=== PATIENT | male | born 1985 | race Caucasian/White ===

== ENCOUNTER 2020-04-10 12:07 | Emergency (ER) | payer OTHER ==
[~2020-04-10] VITALS: Ht 195.6 cm; Wt 171.7 kg
[2020-04-10] MEDS ORDERED: OMEP40CA97 PO (12:16)
[2020-04-10 14:36] VITALS: BP 141/80
--- NOTE | 2020-04-10 14:51 | REP ---
SCROTAL ULTRASOUND: Real-time sonographic evaluation of the scrotum and contents performed. The testicles are normal in size and echotexture, right testicle measuring 4.7 x 1.8 x 3.2 cm and left testicle 4.3 x 2.0 x 3.1 cm. There is no testicular mass or torsion. Blood flow is seen in each testicle with duplex Doppler evaluation. Epididymis is unremarkable bilaterally. There are tiny hydroceles. IMPRESSION: Essentially negative scrotal ultrasound. No mass or torsion. Electronically Signed by Hussain Jimenes MD 04/10/2020 04:48 P
--- NOTE | 2020-04-10 14:53 | REP ---
LEFT INGUINAL ULTRASOUND: Real-time sonographic evaluation of the left inguinal region performed. No fluid collection or hematoma is seen. There are lymph nodes in the left inguinal region with fatty italo. These are at the upper limits of normal in size, the largest measured 1.8 x 1.0 x 1.5 cm and 2.1 x 0.9 x 1.7 cm. IMPRESSION: No fluid collection or hematoma. Lymph nodes seen in the left inguinal region at the upper limits of normal. Electronically Signed by Hussain Jimenes MD 04/10/2020 04:48 P
== END 2020-04-10 14:37 | disposition home or self-care (01) ==
LOC: M ED 12:07
DX: R10.32 Left lower quadrant pain (principal); N50.812 Left testicular pain; K21.9 Gastro-esophageal reflux disease without esophagitis; Z87.442 Personal history of urinary calculi; Z79.899 Other long term (current) drug therapy

== ENCOUNTER → 2020-04-24 | Outpatient (REF) | payer OTHER ==
[~2020-04-24] MED LIST: OMEP40CA97 PO
[2020-04-24 19:08] LABS: APPEARANCE, URINE CLEAR (CLEAR); BACTERIA, URINE AUTO NEGATIVE (NEGATIVE); BILIRUBIN, URINE AUTO NEGATIVE (NEGATIVE); BLOOD, URINE BLOOD NEGATIVE (NEGATIVE); COLOR, URINE YELLOW (YELLOW); GLUCOSE, URINE (UA) AUTO NEGATIVE (NEGATIVE); KETONE, URINE AUTO NEGATIVE (NEGATIVE); LEUKOCYTE ESTERASE, URINE AUTO NEGATIVE (NEGATIVE); NITRITE, URINE AUTO NEGATIVE (NEGATIVE); PROTEIN, URINE AUTO NEGATIVE (NEGATIVE); RBC, URINE AUTO 0 /HPF (0-3); SPECIFIC GRAVITY URINE AUTO 1.012 (1.002-1.035); SQUAMOUS EPITHELIAL CELL UR AU 0 /HPF (0-6); UROBILINOGEN, URINE AUTO 0.2 mg/dL (0.0-2.0); WBC, URINE AUTO 1 /HPF (0-3)
[2020-04-24 20:34] LABS: CHLAMYDIA DNA AMPLIFICATION NEGATIVE (NEGATIVE); GC DNA AMPLIFICATION NEGATIVE (NEGATIVE)
== END ==
LOC: M SMT 17:56
PROVIDERS: ATTEND Nurse Practitioner Family
DX: N50.82 Scrotal pain (principal)

== ENCOUNTER → 2020-05-16 | Outpatient (CLI) | payer OTHER ==
[~2020-05-16] MED LIST changes: +MULTCAP PO
--- NOTE | 2020-05-16 16:42 | REP ---
Inguinal ultrasound. Left side . History: Enlarged lymph node left inguinal region. Findings: Left inguinal soft tissue sonography demonstrates three identifiable lymph nodes measured as follows: 2.2 x 0.6 x 2.6, 2.2 x 1.0 x 1.6, and 2.0 x 0.9 x 1.7 cm respectively. The lymph nodes have echogenic central hilar fat surrounded by thin cortices consistent with normal lymph nodes. No evidence of hernia or abnormal fluid collection. Impression: Three identifiable left inguinal lymph nodes which have a benign appearance as described above. Clinical follow-up is recommended. Electronically Signed by Rui Mukherjee MD 05/16/2020 04:33 P
== END ==
LOC: M LRY 12:07
PROVIDERS: ATTEND Nurse Practitioner Family
DX: R59.1 Generalized enlarged lymph nodes (principal)

== ENCOUNTER 2020-06-12 06:11 | Day surgery (SDC) | payer OTHER ==
[~2020-06-12] VITALS: Ht 195.6 cm; Wt 118.8 kg
[2020-06-12] MEDS ORDERED: LIDOCAINE 2% 100MG/5ML SDV (FOR ANES.) As Ordered ONE (06:53)
[2020-06-12] MEDS ORDERED: SUGAMMADEX SODIUM 500 MG/5 ML VIAL (BRIDION) As Ordered ONE (06:53)
[2020-06-12] MEDS ORDERED: propofoL 200 MG/20 ML VIAL As Ordered ONE (06:53)
[2020-06-12] MEDS ORDERED: ONDANSETRON 4MG/2ML VIAL As Ordered ONE (06:53)
[2020-06-12] MEDS ORDERED: fentaNYL 100 MCG/2 ML INJECTION (J3010) As Ordered ONE (06:53)
[2020-06-12] MEDS ORDERED: MIDAZOLAM INJ 2MG/2ML VIAL (J2250 PER 1MG) As Ordered ONE (06:53)
[2020-06-12] MEDS ORDERED: KETOROLAC 60MG 2ML VIAL As Ordered ONE (06:53)
[2020-06-12] MEDS ORDERED: dexameTHASONE 4 MG/ML 1ML VIAL (J1100 PER 1MG) As Ordered ONE (06:53)
[2020-06-12] MEDS ORDERED: LR 1,000 ML IV ONE (07:00)
[2020-06-12] MEDS ORDERED: ceFAZolin SOD 2 GM in IV 1 EA IV ONE (07:00)
[2020-06-12] MEDS ORDERED: BACITRACIN OINTMENT 30GM TUBE As Ordered ONE (07:09)
[2020-06-12] MEDS ORDERED: PERCOCET 5MG/325MG TAB PO PRN (09:15)
[2020-06-12] MEDS ORDERED: oxyCODONE 5MG TAB PO PRN (09:15)
[2020-06-12] MEDS ORDERED: LR 1,000 ML IV SCH (09:15)
[2020-06-12] MEDS ORDERED: fentaNYL 100 MCG/2 ML INJECTION (J3010) IV PRN (09:15)
[2020-06-12] MEDS ORDERED: ONDANSETRON 4MG/2ML VIAL IV PRN (09:15)
--- NOTE | 2020-06-12 09:16 | ROOPDOC ---
[facility] Report Of Operation Report of Operation DATE OF PROCEDURE: 06/12/20 PREPROCEDURE DIAGNOSIS: Phimosis. POSTPROCEDURE DIAGNOSIS: Phimosis. OPERATIVE PROCEDURE: Circumcision. SURGEON: Ingris Verdin MD INFORMATION CONSULTANT: None. ANESTHESIA: General. OPERATIVE INDICATIONS: This is a 34-year-old male with phimosis presenting to the operating room today for the above listed procedure. DESCRIPTION OF PROCEDURE: The patient was brought to the operating room and general endotracheal anesthesia was induced. Prophylactic antibiotics were infused. He was then placed in the supine position, and prepped and draped in the usual sterile fashion. At this point, circumcising incisions were made at the level of coronal sulcus with the foreskin completely pulled over the glans, and then also with the foreskin retracted down off of the glans. All the foreskin between the circumcising incisions was then removed using electrocautery. Once that was done hemostasis was obtained using the Bovie. Once satisfied with hemostasis, the skin on the penile shaft was reapproximated to the glans using interrupted #3-0 chromic sutures. Once that was done dressings were applied, including a Nakul and a Coban dressing, and this marked the conclusion of the procedure. The patient was then awakened from anesthesia and transported to the recovery room in stable condition. ESTIMATED BLOOD LOSS: 15 mL. COMPLICATIONS: None. SPECIMENS: Foreskin. PLAN: The patient will followup in clinic in a approximately 2 weeks for a postoperative visit. INGRIS VERDIN MD Jun 12, 2020 09:16
[2020-06-12 11:11] VITALS: BP 134/82
== END 2020-06-12 11:15 | disposition home or self-care (01) ==
LOC: M SDC 06:11
PROVIDERS: ATTEND Urology
DX: N47.1 Phimosis (principal); K21.9 Gastro-esophageal reflux disease without esophagitis; G47.30 Sleep apnea, unspecified; Z79.899 Other long term (current) drug therapy
CPT/HCPCS: 54161; 88304; J0690; J1100; J1885; J2250; J2405; J3010

== ENCOUNTER → 2020-07-17 | Outpatient (CLI) | payer OTHER ==
--- NOTE | 2020-07-25 16:45 | REP ---
LIMITED PELVIC ULTRASOUND CLINICAL: Bilateral groin adenopathy. TECHNIQUE: Real-time ross scale and color evaluation using linear high frequency transducer. FINDINGS: Multiple left-sided inguinal lymph nodes are identified measuring roughly between 1.2 x 0.5 cm x 0.9 cm and 3.4 x 1.1 x 1.1 cm. Relatively similar to prior examination. Right-sided solitary groin lymph node measures 1.9 x 0.8 x 1.4 cm. IMPRESSION: Inguinal lymph nodes similar to prior examination without significant pathologic appearance. MTDD
== END ==
LOC: M RAD 14:25
PROVIDERS: ATTEND Nurse Practitioner Family
DX: R59.9 Enlarged lymph nodes, unspecified (principal)

== ENCOUNTER 2021-09-06 22:14 | Emergency (ER) | payer OTHER ==
[~2021-09-06] VITALS: Ht 195.6 cm; Wt 128.7 kg
[~2021-09-06 22:14] MED LIST changes: +OMEP40CA4 PO; -OMEP40CA97 PO
[2021-09-06 22:15] VITALS: BP 151/76
--- OUTSIDE RECORDS SUMMARY | 2021-09-06 22:24 | CCD | Continuity of Care Document ---
Author Author Jason AREVALO [employer] Organization Unknown Address [address] [place] [id number] Phone [phone] Care Team Providers Care Paramedic Name Role Phone David Tabares AUTM [phone] Problems Description No Information Available Social History Type Date Description Comments Sex Unknown ETOH Use Occasionally consumes alcohol Tobacco Use Start: Unknown Patient has never smoked Smoking Status Reviewed: 05/27/21 Patient has never smoked Allergies and adverse reactions Description No Known Drug Allergies Medications Active Medications SIG Qnty Indications Ordering Provide r Date Levothyroxine Sodium 125mcg Tablet s 1 tab by mouth every day 90tabs E03.9 Stefany Arevalo NP 2020 Acetaminophen 325mg Tablets 2 tabs every 4-6 hrs needed for pain Unknown 00 Ibuprofen 400mg Tablets 1 every 4-6 hours as needed Unknown Omeprazole 40mg Capsules DR 1 po qd Unknown Multi Vitamin Tablets 1 by mouth every day Unknown Trazodone HCL 50mg Tablets one tab by mouth every night at bedtime Unknown [place] 3 1000mg Capsules 1 tab bid Unknown History Medications Levothyroxine Sodium 137mcg Tablet s 1 tab by mouth every day 90tabs E03.9 Erlinda Decker MD - 04/24/2021 Immunizations Description No Information Available Vital Signs Date Vital Result Comment 09/02/2021 9:57am BP Systolic 146 mmHg BP Diastolic 80 mmHg Heart Rate 80 /min Height 77 inches 6'5" Weight 283.31 lb BMI (Body Mass Index) 33.6 kg/m2 O2 % BldC Oximetry 98 % 05/27/2021 8:43am BP Systolic 142 mmHg BP Diastolic 84 mmHg Heart Rate 84 /min Body Temperature 97.1 F Height 77 inches 6'5" Weight 272.00 lb BMI (Body Mass Index) 32.3 kg/m2 Results Test Acquired Date Facility Test Result H/L Range Note Laboratory test finding 05/27/2021 [facility] [address] [place] [address] [phone] - Free T4 By [facility] 1.5 ng/dL Normal . 1 Laboratory test finding 03/20/2021 [facility] [address] [place] [address] [phone] - Non [employer]Cytology Req For [employer] (SEE NOTE) 2 1 This test was developed and its performance characteristics determined by [facility]. It has not been cleared or approved by the Food and Drug Administration. Reference Range: Pubertal Children and Adults: 0.8 - 1.7 Performed at: [email or web address] [address] [place] [id number] [employer]: Yariel Armas MD, Phone: [phone] SPECIMEN: FNA of left thyroid nodule Specimen received in cytolyt SPECIMEN ADEQUACY: Satisfactory for evaluation CATEGORIZATION: Benign DESCRIPTIONS: Specimen consists of variable sized groups of follicular cells and scattered macrophages. COMMENTS: 03/21/2021 - 1103 Signed ABIDA BARTON (ASCP) 03/21/2021 1103 (Prelim) Signed RUBI GA MD 03/21/2021 1152 Procedures Date Code Description Status 09/02/2021 18197 Office/Outpatient Established Lo w MDM 20-29 Min Completed 05/27/2021 98342 Office/Outpatient Established Mo d MDM 30-39 Min Completed 04/24/2021 75901 Office/Outpatient Established Mo d MDM 30-39 Min Completed 03/20/2021 33556 Office/Outpatient Established Mo d MDM 30-39 Min Completed 03/20/2021 61548 Echography Soft Tissue Hand & Ne ck Completed 03/20/2021 00115 Fine Needle Aspiration Biopsy In lcd Ultrasound Guidance Completed Medical Devices Description No Information Available Encounters Type Date Location Provider Dx Diagnosis Office Visit 09/02/2021 9:45a DR. Erlinda Fish Stefany B. Jayden, N P E03.9 Hypothyroidism, unspecified E04.1 Nontoxic single thyroid nodu le Office Visit 05/27/2021 8:45a DR. Erlinda Arevalo, N P E03.9 Hypothyroidism, unspecified E04.1 Nontoxic single thyroid nodu le Office Visit 04/24/2021 9:45a DR. Erlinda Arevalo, N P E03.9 Hypothyroidism, unspecified E04.1 Nontoxic single thyroid nodu le Office Visit 03/20/2021 11:15a DR. Erlinda Decker MD E 03.9 Hypothyroidism, unspecified E04.1 Nontoxic single thyroid nodu le Assessments Date Code Description Provider 09/02/2021 E03.9 Hypothyroidism, unspecified Vargas Arevalo, [employer] 09/02/2021 E04.1 Nontoxic single thyroid nodule Isiah Arevalo, [employer] 05/27/2021 E03.9 Hypothyroidism, unspecified Vargas Arevalo, [employer] TE[employer]ER 05/27/2021 E04.1 Nontoxic single thyroid nodule Isiah Arevalo, [employer] 04/24/2021 E03.9 Hypothyroidism, unspecified Vargas Arevalo, [employer] TE[employer]ER 04/24/2021 E04.1 Nontoxic single thyroid nodule Isiah Arevalo, [employer] TE[employer] 03/20/2021 E03.9 Hypothyroidism, unspecified Viola Decker MD 03/20/2021 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 ( started Dec 2020)03/17/2021 TSH= 4.0, FT4= 1.0, TPO= >600TPO is positive.Dose increased to 137 mcgLabs done 04/22/21- TSH= 0.160, FT4= 1.36Dose decreased to Levothyroxine 125 mcg po qd Labs done 05/21/21- TSH= <0.007, FT4= 1.41- pt asymptomatic Has an interfering antibody- Checked FT4 by dialysis 05/27/21= 1.5- normal Will continue current dose. Leaving for [place] next week. * Follow up:* Leaving for [place]. * E04.1 Nontoxic single thyroid nodule* Comments:* Past hx of a nodule with a benign biopsy. Records not available. Patient agreed to repeat evaluation with in office U/COCHRAN/S showed slightly heterogenous echotexture of the right lobe ( enlarged) and left lobe with a solitary nodule well demarcated in the mid left lobe. Peripheral Blood flow pattern.We did not have records about the adequacy of previous biopsy so we decided on repeat biopsy to assure non malignant process.Biopsy completed 03/20/21- Benign- specimen consists of variable sized groups of follicular cells and scattered macrophages. Should have annual thyroid ultrasound- due 02/2022 Functional Status Description No Information Available Mental Status Description No Information Available Referrals Description No Information Available
--- OUTSIDE RECORDS SUMMARY | 2021-09-06 22:25 | CCD ---
Author Author [facility] Address Unknown Phone Unavailable Care Team Providers Care Pre Fabricator Name Role Phone IRINA, B HEBERT SALES ENGINEER Unavailable Unavailable IRINA, B HEBERT SALES ENGINEER Unavailable Unavailable IRINA, B HEBERT SALES ENGINEER Unavailable Unavailable IRINA, B HEBERT SALES ENGINEER Unavailable Unavailable IRINA, B HEBERT SALES ENGINEER Unavailable Unavailable IRINA, B HEBERT SALES ENGINEER Unavailable Unavailable IRINA, B HEBERT SALES ENGINEER Unavailable Unavailable IRINA, B HEBERT SALES ENGINEER Unavailable Unavailable IRINA, B HEBERT SALES ENGINEER Unavailable Unavailable IRINA, B HEBERT SALES ENGINEER Unavailable Unavailable IRINA, B HEBERT SALES ENGINEER Unavailable Unavailable IRINA, B HEBERT SALES ENGINEER Unavailable Unavailable IRINA, B HEBERT SALES ENGINEER Unavailable Unavailable IRINA, B HEBERT SALES ENGINEER Unavailable Unavailable IRINA, B HEBERT SALES ENGINEER Unavailable Unavailable IRINA, B HEBERT SALES ENGINEER Unavailable Unavailable IRINA, B HEBERT SALES ENGINEER Unavailable Unavailable IRINA, B HEBERT SALES ENGINEER Unavailable Unavailable IRINA, B HEBERT SALES ENGINEER Unavailable Unavailable IRINA, B HEBERT SALES ENGINEER Unavailable Unavailable IRINA, B HEBERT SALES ENGINEER Unavailable Unavailable IRINA, B HEBERT SALES ENGINEER Unavailable Unavailable IRINA, B HEBERT SALES ENGINEER Unavailable Unavailable IRINA, B HEBERT SALES ENGINEER Unavailable Unavailable IRINA, B HEBERT SALES ENGINEER Unavailable Unavailable IRINA, B HEBERT SALES ENGINEER Unavailable Unavailable IRINA, B HEBERT SALES ENGINEER Unavailable Unavailable IRINA, B HEBERT SALES ENGINEER Unavailable Unavailable IRINA, B HEBERT SALES ENGINEER Unavailable Unavailable IRINA, B HEBERT SALES ENGINEER Unavailable Unavailable IRINA, B HEBERT SALES ENGINEER Unavailable Unavailable IRINA, B HEBERT SALES ENGINEER Unavailable Unavailable IRINA, B HEBERT SALES ENGINEER Unavailable Unavailable IRINA, B HEBERT SALES ENGINEER Unavailable Unavailable IRINA, B HEBERT SALES ENGINEER Unavailable Unavailable IRINA, B HEBERT SALES ENGINEER Unavailable Unavailable IRINA, B HEBERT SALES ENGINEER Unavailable Unavailable IRINA, B HEBERT SALES ENGINEER Unavailable Unavailable IRINA, B HEBERT SALES ENGINEER Unavailable Unavailable IRINA, B HEBERT SALES ENGINEER Unavailable Unavailable IRINA, B HEBERT SALES ENGINEER Unavailable Unavailable IRINA, B HEBERT SALES ENGINEER Unavailable Unavailable IRINA, B HEBERT SALES ENGINEER Unavailable Unavailable IRINA, B HEBERT SALES ENGINEER Unavailable Unavailable IRINA, B HEBERT SALES ENGINEER Unavailable Unavailable IRINA, B HEBERT SALES ENGINEER Unavailable Unavailable IRINA, B HEBERT SALES ENGINEER Unavailable Unavailable IRINA, B HEBERT SALES ENGINEER Unavailable Unavailable IRINA, B HEBERT SALES ENGINEER Unavailable Unavailable IRINA, B HEBERT SALES ENGINEER Unavailable Unavailable IRINA, B HEBERT SALES ENGINEER Unavailable Unavailable IRINA, B HEBERT SALES ENGINEER Unavailable Unavailable IRINA, B HEBERT SALES ENGINEER Unavailable Unavailable IRINA, B HEBERT SALES ENGINEER Unavailable Unavailable IRINA, B HEBERT SALES ENGINEER Unavailable Unavailable IRINA, B HEBERT SALES ENGINEER Unavailable Unavailable IRINA, B HEBERT SALES ENGINEER Unavailable Unavailable IRINA, B HEBERT SALES ENGINEER Unavailable Unavailable IRINA, B HEBERT SALES ENGINEER Unavailable Unavailable IRINA, B HEBERT SALES ENGINEER Unavailable Unavailable IRINA, B HEBERT SALES ENGINEER Unavailable Unavailable IRINA, B HEBERT SALES ENGINEER Unavailable Unavailable Fish, B Erlinda VO Unavailable Unavailable Fish, B Erlinda VO Unavailable Unavailable Fish, B Erlinda VO Unavailable Unavailable Fish, B Erlinda VO Unavailable Unavailable Fish, B Erlinda VO Unavailable Unavailable Fish, B Erlinda VO Unavailable Unavailable Fish, B Erlinda VO Unavailable Unavailable Fish, B Erlinda VO Unavailable Unavailable Fish, B Erlinda VO Unavailable Unavailable Fish, B Erlinda VO Unavailable Unavailable Fish, B Erlinda VO Unavailable Unavailable Fish, B Erlinda VO Unavailable Unavailable Fish, B Erlinda VO Unavailable Unavailable Fish, B Erlinda VO Unavailable Unavailable Fish, B Erlinda VO Unavailable Unavailable Fish, B Erlinda VO Unavailable Unavailable Fish, B Erlinda VO Unavailable Unavailable Fish, B Erlinda VO Unavailable Unavailable Fish, B Erlinda VO Unavailable Unavailable Fish, B Erlinda VO Unavailable Unavailable Fish, B Erlinda VO Unavailable Unavailable Fish, B Erlinda VO Unavailable Unavailable Fish, B Erlinda VO Unavailable Unavailable Fish, B Erlinda VO Unavailable Unavailable Fish, B Erlinda VO Unavailable Unavailable Fish, B Erlinda MD Unavailable Unavailable Fish, B Erlinda MD Unavailable Unavailable Fish, B Erlinda MD Unavailable Unavailable Fish, B Erlinda MD Unavailable Unavailable Fish, B Erlinda MD Unavailable Unavailable Fish, B Erlinda MD Unavailable Unavailable Fish, B Erlinda MD Unavailable Unavailable Fish, B Erlinda MD Unavailable Unavailable Fish, B Erlinda MD Unavailable Unavailable Fish, B Erlinda MD Unavailable Unavailable Fish, B Erlinda MD Unavailable Unavailable Fish, B Erlinda MD Unavailable Unavailable Fish, B Erlinda MD Unavailable Unavailable Fish, B Erlinda MD Unavailable Unavailable Fish, B Erlinda MD Unavailable Unavailable Fish, B Erlinda MD Unavailable Unavailable Fish, B Erlinda MD Unavailable Unavailable Fish, B Erlinda MD Unavailable Unavailable Fish, B Erlinda MD Unavailable Unavailable Fish, B Erlinda MD Unavailable Unavailable Fish, B Erlinda MD Unavailable Unavailable Fish, B Erlinda MD Unavailable Unavailable Fish, B Erlinda MD Unavailable Unavailable Fish, B Erlinda MD Unavailable Unavailable Fish, B Erlinda MD Unavailable Unavailable Fish, B Erlinda MD Unavailable Unavailable Fish, B Erlinda MD Unavailable Unavailable Fish, B Erlinda MD Unavailable Unavailable Fish, B Erlinda MD Unavailable Unavailable Fish, B Erlinda MD Unavailable Unavailable Fish, B Erlinda MD Unavailable Unavailable Fish, B Erlinda MD Unavailable Unavailable Fish, B Erlinda MD Unavailable Unavailable Fish, B Erlinda MD Unavailable Unavailable Fish, B Erlinda MD Unavailable Unavailable Fish, B Erlinda MD Unavailable Unavailable Fish, B Erlinda MD Unavailable Unavailable Fish, B Erlinda MD Unavailable Unavailable Fish, B Erlinda MD Unavailable Unavailable Fish, B Erlinda MD Unavailable Unavailable Re-disclosure Warning The records that you are about to access may contain information from federally-assisted alcohol or drug abuse programs. If such information is present, then the following federally mandated warning applies: This information has been disclosed to you from records protected by federal confidentiality rules (42 CFR part 2). The federal rules prohibit you from making any further disclosure of this information unless further disclosure is expressly permitted by the written consent of the person to whom it pertains or as otherwise permitted by 42 CFR part 2. A general authorization for the release of medical or other information is NOT sufficient for this purpose. The Federal rules restrict any use of the information to criminally investigate or prosecute any alcohol or drug abuse patient.The records that you are about to access may contain highly sensitive health information, the redisclosure of which is protected by Article 27-F of the [facility] Public Health law. If you continue you may have access to information: Regarding HIV / AIDS; Provided by facilities licensed or operated by the [facility] Office of Mental Health; or Provided by the [facility] Office for People With Developmental Disabilities. If such information is present, then the following [facility] mandated warning applies: This information has been disclosed to you from confidential records which are protected by state law. State law prohibits you from making any further disclosure of this information without the specific written consent of the person to whom it pertains, or as otherwise permitted by law. Any unauthorized further disclosure in violation of state law may result in a fine or longterm sentence or both. A general authorization for the release of medical or other information is NOT sufficient authorization for further disc losure. Encounters Encounter Providers Location Date Indications Data Source(s ) OFFICE OUTPATIENT VISIT 15 MINUTES Attender: HEBERT AREVALO NP Physical Therapy 09/02/2021 09:45:00 AM EDT [facility] ([facility]) Outpatient Attender: HEBERT AREVALO NP Physical Therapy 08:45:00 AM EDT [facility] ([facility]) Outpatient Attender: HEBERT AREVALO NP Physical Therapy 09:45:00 AM EDT [facility] ([facility]) Outpatient Attender: Erlinda Decker MD Physical Therapy 03/20 11:15:00 AM EDT [facility] ([facility]) Outpatient Attender: HEBERT AREVALO NP Physical Therapy 09:00:00 AM EST [facility] ([facility]) Immunizations Vaccine Date Status Description Data Source(s) COVID-19 VACCINE Pfizer 01/08/2021 12:00:00 AM EST completed [facility] Vaccine Series Complete: NOThis Data was Submitted to [facility] Via [employer]. Medications Medication Brand Name Start Date Product Form Dose Route Admi nistrative Instructions Pharmacy Instructions Status Indications Reaction Description Data Source(s) Levothyroxine Sodium 0.125 MG Oral Tablet Levothyroxine Sodi 04/24/2021 12:00:00 AM EDT ORAL active M [facility] ([facility]) Levothyroxine Sodium 0.137 MG Oral Tablet Levothyroxine Sodi 03/20/2021 12:00:00 AM EDT ORAL completed [facility] ([facility]) Levothyroxine Sodium 0.1 MG Oral Capsule Levothyroxine Gene m 01/16/2021 12:00:00 AM EST ORAL completed [facility] ([facility]) Insurance Providers Payer name Policy type / Coverage type Policy ID Covered constitution party ID Covered constitution party's relationship to grossman Policy Grossman Plan Information [facility] [employer] [id number] SP [id number] [facility] [employer] [id number] SP [id number] Problems, Conditions, and Diagnoses No Information Surgeries/Procedures Procedure Description Date Indications Data Source(s) OFFICE OUTPATIENT VISIT 15 MINUTES 09/02/2021 12:00:00 AM EDT [facility] ([facility]) OFFICE OUTPATIENT VISIT 25 MINUTES 05/27/2021 12:00:00 AM EDT [facility] ([facility]) OFFICE OUTPATIENT VISIT 25 MINUTES 04/24/2021 12:00:00 AM EDT [facility] ([facility] Fine Needle Aspiration Biopsy Inlcd Ultrasound Guidance 03/20/2021 12:00:00 AM EDT [facility] ([facility]) Echography Soft Tissue Hand & Neck 03/20/2021 12:00:00 AM EDT [facility] ([facility]) OFFICE OUTPATIENT VISIT 25 MINUTES 03/20/2021 12:00:00 AM EDT [facility] ([facility]) OFFICE CONSULTATION NEW/ESTAB PATIENT 60 MIN 12:00:00 AM EST [facility] ([facility] ) Results ID Date Data Source [id number] 07/09/2021 02:51:00 AM EDT [facility] Name Value Range Interpretation Code Description Data Andie rce(s) Supporting Document(s) [id number] NOT DETECTED [facility] A Not Detected result means that SARS-Co V-2 RNA wasnot present in the specimen above the limit of detection.Test Method: Nucleic Acid Amplification Test includingreverse facility specialist polymerase chain reaction (RT-PCR)and facility specialist mediated amplification (TMA). The testmethod meets the [place] Centers for Disease Control andprevention (CDC) pre departure and arrival requirementfor viral test for COVID-19 dated December 19, 2020.Testing requirements for traveling may change with time.The patient is responsible for determining the testrequirements for each nation while they are traveling.This patient specimen was tested using an FDA EUA poolingmethod.Negative results from pooled testing should not betreated as definitive. If the patient's clinicalsigns and symptoms are inconsistent with a negativeresult or results are necessary for patient management,then the patient should be considered for individualtesting. In very rare cases, estimated at about 8in 1,000 (0.8%) or less patient specimens with l owviral loads may not be detected in sample pools dueto the decreased sensitivity of pooled testing.Please review the "Fact Sheets" and FDA authorizedlabeling available for health care providers andpatients using the following websites:https://www.[employer]/home/Covid-19/HCP/qt-maef-cab6-fact-sh eet.htmlhttps://www.[employer]/home/Covid-19/Patients/me-iwhr-qxm6-fac t-sheet.htmlThis test has been authorized by the FDA under anEmergency Use Authorization (EUA) for use by authorizedlaboratories.Due to the current public health emergency, [facility] is accepting samples from appropriateclinical sources collected using wide variety ofswabs and transport media for COVID-19. Not detectedtest results derived from specimens received in non-commercially manufactured viral collection kits or thosenot yet authorized by FDA for COVID- 19 testing should becautiously evaluated and take extra precautions such assuch as additional clinical monitoring, including collectionof an additional specimen.Additional information about COVID-19 can be foundat the [employer] website:www.[facility]/Covid19. ID Date Data Source [id number] 05/27/2021 09:49:[address] [facility] ([facility]) Name Value Range Interpretation Code Description Data Andie rce(s) Supporting Document(s) Thyroxine (T4) free [Mass/volume] in Serum or Plasma by Dialysis 1. 5 ng/dL [facility] ([facility]) This test was developed and its performa nce characteristics determined by [facility]. It has not been cleared or approved by the Food and Drug Administration. Reference Range: Pubertal Children and Adults: 0.8 - 1.7 Performed at: [facility] [address] [place] [address] [id number] Group Therapist: Yariel Armas MD, Phone: [phone] ID Date Data Source [id number] 03/20/2021 11:45:[address] [facility] ([facility]) Name Value Range Interpretation Code Description Data Andie rce(s) Supporting Document(s) Microscopic observation [Identifier] in Unspecified specimen by Non- gynecological cytology method Laboratory test result [facility] ([facility]) SPECIMEN: FNA of left thyroid nodule Specimen received in cytolyt SPECIMEN ADEQUACY: Satisfactory for evaluation CATEGORIZATION: Benign DESCRIPTIONS: Specimen consists of variable sized groups of follicular cells and scattered macrophages. COMMENTS: 03/21/2021 - 1103 Signed ABIDA BARTON (ASCP) 03/21/2021 1103 (Prelim) Signed RUBI GA MD 03/21/2021 1152 Procedure Social History Code Duration Value Status Description Data Source(s ) Smoking 05/27/2021 12:00:00 AM EDT Patient has never smoked co mpleted Patient has never smoked [facility] ([facility]) Vital Signs ID Date Data Source UNK Name Value Range Interpretation Code Description Data Source(s) Diastolic blood pressure 80 mm[Hg] 80 mm[Hg] [facility] ([facility]) Heart rate 80 /min 80 /min [facility] ([facility]) Body height 77 [in_i] 77 [in_i] [facility] ([facility]) 6'5" Body weight 283.31 [lb_av] 283.31 [lb_av] [facility] Body mass index (BMI) [Ratio] 33.6 kg/m2 33.6 k g/m2 [facility] ([facility]) Systolic blood pressure 146 mm[Hg] 146 mm[Hg] [facility] ([facility]) Oxygen saturation in Arterial blood by Pulse oximetry 98 % 98 % [facility] ([facility]) Systolic blood pressure 142 mm[Hg] 142 mm[Hg] [facility] Diastolic blood pressure 84 mm[Hg] 84 mm[Hg] [facility] ([facility]) Heart rate 84 /min 84 /min [facility] ([facility]) Body temperature 97.1 [degF] 97.1 [degF] [facility] ([facility] Body height 77 [in_i] 77 [in_i] [facility] ([facility] 6'5" Body weight 272.00 [lb_av] 272.00 [lb_av] [facility] ([facility] Body mass index (BMI) [Ratio] 32.3 kg/m2 32.3 k g/m2 [facility] ([facility] Body weight 274.31 [lb_av] 274.31 [lb_av] [facility] ([facility] Oxygen saturation in Arterial blood by Pulse oximetry 98 % 98 % [facility] ([facility] Body mass index (BMI) [Ratio] 32.5 kg/m2 32.5 k g/m2 [facility] ([facility] Systolic blood pressure 134 mm[Hg] 134 mm[Hg] [facility] ([facility] Diastolic blood pressure 80 mm[Hg] 80 mm[Hg] [facility] ([facility] Heart rate 69 /min 69 /min [facility] ([facility] Body temperature 96.4 [degF] 96.4 [degF] [facility] ([facility] Body height 77 [in_i] 77 [in_i] [facility] ([facility] 6'5" Body temperature 96.7 [degF] 96.7 [degF] [facility] ([facility] Body height 77 [in_i] 77 [in_i] [facility] ([facility] 6'5" Body weight 274.56 [lb_av] 274.56 [lb_av] [facility] ([facility] Body mass index (BMI) [Ratio] 32.6 kg/m2 32.6 k g/m2 [facility] ([facility] Systolic blood pressure 130 mm[Hg] 130 mm[Hg] [facility] ([facility] Diastolic blood pressure 86 mm[Hg] 86 mm[Hg] [facility] ([facility] Heart rate 74 /min 74 /min [facility] ([facility] Oxygen saturation in Arterial blood by Pulse oximetry 98 % 98 % [facility] ([facility] ) Oxygen saturation in Arterial blood by Pulse oximetry 98 % 98 % [facility] ([facility] Body mass index (BMI) [Ratio] 33.0 kg/m2 33.0 k g/m2 [facility] ([facility]) Systolic blood pressure 144 mm[Hg] 144 mm[Hg] [facility] ([facility]) Diastolic blood pressure 80 mm[Hg] 80 mm[Hg] [facility] ([facility]) Heart rate 77 /min 77 /min [facility] ([facility]) Body temperature 97.1 [degF] 97.1 [degF] [facility] Body height 77 [in_i] 77 [in_i] [facility] ([facility]) 6'5" Body weight 278.00 [lb_av] 278.00 [lb_av] [facility] ([facility])
[2021-09-06] MEDS ORDERED: SYNT125T PO (22:32)
[2021-09-07] MEDS ORDERED: predniSONE 20 MG TAB PO ONE (01:25)
[2021-09-07] MEDS ORDERED: CETIRIZINE (ZyrTEC) 10 MG TAB PO ONE (01:25)
[2021-09-07] MEDS ORDERED: CEPHALEXIN 500 MG CAP PO ONE (01:25)
[2021-09-07] MEDS ORDERED: FAMOTIDINE 20 MG TAB PO ONE (01:25)
[2021-09-07] MEDS ORDERED: CEPH500C PO (01:54)
[2021-09-07] MEDS ORDERED: MEDR4PAK PO (01:54)
--- OUTSIDE RECORDS SUMMARY | 2021-09-07 01:58 | CCD ---
Author Author [facility] Address Unknown Phone Unavailable Care Team Providers Care Supervisor Labor Gang Name Role Phone IRINA, B HEBERT WRAPPER OPENER Unavailable Unavailable IRINA, B HEBERT WRAPPER OPENER Unavailable Unavailable IRINA, B HEBERT WRAPPER OPENER Unavailable Unavailable IRINA, B HEBERT WRAPPER OPENER Unavailable Unavailable IRINA, B HEBERT WRAPPER OPENER Unavailable Unavailable IRINA, B HEBERT WRAPPER OPENER Unavailable Unavailable IRINA, B HEBERT WRAPPER OPENER Unavailable Unavailable IRINA, B HEBERT WRAPPER OPENER Unavailable Unavailable IRINA, B HEBERT WRAPPER OPENER Unavailable Unavailable IRINA, B HEBERT WRAPPER OPENER Unavailable Unavailable IRINA, B HEBERT WRAPPER OPENER Unavailable Unavailable IRINA, B HEBERT WRAPPER OPENER Unavailable Unavailable IRINA, B HEBERT WRAPPER OPENER Unavailable Unavailable IRINA, B HEBERT WRAPPER OPENER Unavailable Unavailable IRINA, B HEBERT WRAPPER OPENER Unavailable Unavailable IRINA, B HEBERT WRAPPER OPENER Unavailable Unavailable IRINA, B HEBERT WRAPPER OPENER Unavailable Unavailable IRINA, B HEBERT WRAPPER OPENER Unavailable Unavailable IRINA, B HEBERT WRAPPER OPENER Unavailable Unavailable IRINA, B HEBERT WRAPPER OPENER Unavailable Unavailable IRINA, B HEBERT WRAPPER OPENER Unavailable Unavailable IRINA, B HEBERT WRAPPER OPENER Unavailable Unavailable IRINA, B HEBERT WRAPPER OPENER Unavailable Unavailable IRINA, B HEBERT WRAPPER OPENER Unavailable Unavailable IRINA, B HEBERT WRAPPER OPENER Unavailable Unavailable IRINA, B HEBERT WRAPPER OPENER Unavailable Unavailable IRINA, B HEBERT WRAPPER OPENER Unavailable Unavailable IRINA, B HEBERT WRAPPER OPENER Unavailable Unavailable IRINA, B HEBERT WRAPPER OPENER Unavailable Unavailable IRINA, B HEBERT WRAPPER OPENER Unavailable Unavailable IRINA, B HEBERT WRAPPER OPENER Unavailable Unavailable IRINA, B HEBERT WRAPPER OPENER Unavailable Unavailable IRINA, B HEBERT WRAPPER OPENER Unavailable Unavailable IRINA, B HEBERT WRAPPER OPENER Unavailable Unavailable IRINA, B HEBERT WRAPPER OPENER Unavailable Unavailable IRINA, B HEBERT WRAPPER OPENER Unavailable Unavailable IRINA, B HEBERT WRAPPER OPENER Unavailable Unavailable IRINA, B HEBERT WRAPPER OPENER Unavailable Unavailable IRINA, B HEBERT WRAPPER OPENER Unavailable Unavailable IRINA, B HEBERT WRAPPER OPENER Unavailable Unavailable IRINA, B HEBERT WRAPPER OPENER Unavailable Unavailable IRINA, B HEBERT WRAPPER OPENER Unavailable Unavailable IRINA, B HEBERT WRAPPER OPENER Unavailable Unavailable IRINA, B HEBERT WRAPPER OPENER Unavailable Unavailable IRINA, B HEBERT WRAPPER OPENER Unavailable Unavailable IRINA, B HEBERT WRAPPER OPENER Unavailable Unavailable IRINA, B HEBERT WRAPPER OPENER Unavailable Unavailable IRINA, B HEBERT WRAPPER OPENER Unavailable Unavailable IRINA, B HEBERT WRAPPER OPENER Unavailable Unavailable IRINA, B HEBERT WRAPPER OPENER Unavailable Unavailable IRINA, B HEBERT WRAPPER OPENER Unavailable Unavailable IRINA, B HEBERT WRAPPER OPENER Unavailable Unavailable IRINA, B HEBERT WRAPPER OPENER Unavailable Unavailable IRINA, B HEBERT WRAPPER OPENER Unavailable Unavailable IRINA, B HEBERT WRAPPER OPENER Unavailable Unavailable IRINA, B HEBERT WRAPPER OPENER Unavailable Unavailable IRINA, B HEBERT WRAPPER OPENER Unavailable Unavailable IRINA, B HEBERT WRAPPER OPENER Unavailable Unavailable IRINA, B HEBERT WRAPPER OPENER Unavailable Unavailable IRINA, B HEBERT WRAPPER OPENER Unavailable Unavailable IRINA, B HEBERT WRAPPER OPENER Unavailable Unavailable IRINA, B HEBERT WRAPPER OPENER Unavailable Unavailable Fish, B Erlinda VO Unavailable [...] B Erlinda VO Unavailable Unavailable Fish, B Elrinda VO Unavailable Unavailable Fish, B Erlinda VO [...] is protected by Article 27-F of the [facility] Public Health law. If you continue you may have access to information: Regarding HIV / AIDS; Provided by facilities licensed or operated by the [facility] Office of Mental Health; or Provided by the [facility] Office for People With Developmental Disabilities. If such information is present, then the following [facility] mandated warning applies: This information has been [...] law may result in a fine or detention sentence or both. A general authorization for the release of medical or other information is NOT sufficient authorization for further disc losure. Encounters Encounter Providers Location Date Indications Data Source(s ) OFFICE OUTPATIENT VISIT 15 MINUTES Attender: HEBERT AREVALO NP Physical Therapy 09/02/2021 09:45:00 AM EDT [facility] ([facility]) Outpatient Attender: HEBERT AREVALO NP Physical Therapy 08:45:00 AM EDT [facility] ([facility]) Outpatient Attender: HEBERT AREVALO NP Physical Therapy 09:45:00 AM EDT [facility] ([facility]) Outpatient Attender: Erlinda Decker MD Physical Therapy 03/20 11:15:00 AM EDT [facility] ([facility]) Outpatient Attender: HEBERT AREVALO NP Physical Therapy 09:00:00 AM EST [facility] ([facility]) Immunizations Vaccine Date Status Description Data Source(s) COVID-19 VACCINE Pfizer 01/08/2021 12:00:00 AM EST completed [facility] Vaccine Series Complete: NOThis Data was Submitted to [facility] Via [place] [facility]. Medications Medication Brand Name Start Date Product Form Dose Route Admi nistrative Instructions Pharmacy Instructions Status Indications Reaction Description Data Source(s) Levothyroxine Sodium 0.125 MG Oral Tablet Levothyroxine Sodi 04/24/2021 12:00:00 AM EDT ORAL active M [facility] ([facility]) Levothyroxine Sodium 0.137 MG Oral Tablet Levothyroxine Sodi 03/20/2021 12:00:00 AM EDT ORAL completed [facility] ([facility]) Levothyroxine Sodium 0.1 MG Oral Capsule Levothyroxine Gene m 01/16/2021 12:00:00 AM EST ORAL completed [facility] ([facility]) Insurance Providers Payer name Policy type / Coverage type Policy ID Covered libertarian ID Covered libertarian's relationship to grossman Policy Grossman Plan Information [facility] [id number] SP [id number] [facility] [id number] SP [id number] Problems, Conditions, and Diagnoses No Information Surgeries/Procedures Procedure Description Date Indications Data Source(s) OFFICE OUTPATIENT VISIT 15 MINUTES 09/02/2021 12:00:00 AM EDT [facility] ([facility]) OFFICE OUTPATIENT VISIT 25 MINUTES 05/27/2021 12:00:00 AM EDT [facility] ([facility]) OFFICE OUTPATIENT VISIT 25 MINUTES 04/24/2021 12:00:00 AM EDT [facility] ([facility] ) Fine Needle Aspiration Biopsy Inlcd Ultrasound Guidance 03/20/2021 12:00:00 AM EDT [facility] ([facility]) Echography Soft Tissue Hand & Neck 03/20/2021 12:00:00 AM EDT [facility] ([facility]) OFFICE OUTPATIENT VISIT 25 MINUTES 03/20/2021 12:00:00 AM EDT [facility] ([facility]) OFFICE CONSULTATION NEW/ESTAB PATIENT 60 MIN 12:00:00 AM EST [facility] ([facility] ) Results ID Date Data Source [id number] 07/09/2021 02:51:00 AM EDT [facility] Name Value Range Interpretation Code Description Data Andie rce(s) Supporting Document(s) [id number] NOT DETECTED [facility] A Not Detected result means that SARS-Co V-2 RNA wasnot present in the specimen above the limit of detection.Test Method: Nucleic Acid Amplification Test includingreverse medical transcription supervisor polymerase chain reaction (RT-PCR)and medical transcription supervisor mediated amplification (TMA). The testmethod meets the [...] health care providers andpatients using the following websites:https://www.[employer]/home/Covid-19/HCP/yw-pxkm-utl0-fact-sh eet.htmlhttps://www.[employer]/home/Covid-19/Patients/ic-dupu-uny3-fac t-sheet.htmlThis test has been authorized by the FDA under anEmergency Use Authorization (EUA) for use by authorizedlaboratories.Due to the current public health emergency, [facility] is accepting samples from appropriateclinical sources collected [...] information about COVID-19 can be foundat the [email or web address] website:www.[facility].[employer]/Covid19. ID Date Data Source [id number] 05/27/2021 09:49:00 AM EDT [facility]) Name Value Range Interpretation Code Description Data Andie rce(s) Supporting Document(s) Thyroxine (T4) free [Mass/volume] in Serum or Plasma by Dialysis 1. 5 ng/dL [facility] ([facility]) This test was developed and its performa nce characteristics determined by [facility]. It has not been cleared or approved by the Food and Drug Administration. Reference Range: Pubertal Children and Adults: 0.8 - 1.7 Performed at: [facility] [address] [place] [address] [id number] Compliance Professional: Yariel Armas MD, Phone: [phone] ID Date Data Source [id number] 03/20/2021 11:45:00 AM EDT [facility]) Name Value Range Interpretation Code Description Data Andie rce(s) Supporting Document(s) Microscopic observation [Identifier] in Unspecified specimen by Non- gynecological cytology method Laboratory test result [facility] ([facility]) SPECIMEN: FNA of left thyroid nodule [...] smoked co mpleted Patient has never smoked [facility]) Vital Signs ID Date Data Source UNK Name Value Range Interpretation Code Description Data Source(s) Body mass index (BMI) [Ratio] 33.6 kg/m2 33.6 k g/m2 [facility] Diastolic blood pressure 80 mm[Hg] 80 mm[Hg] [facility] Heart rate 80 /min 80 /min [facility] ([facility]) Body height 77 [in_i] 77 [in_i] [facility] 6'5" Body weight 283.31 [lb_av] 283.31 [lb_av] [facility] ([facility]) Systolic blood pressure 146 mm[Hg] 146 mm[Hg] [facility] Oxygen saturation in Arterial blood by Pulse oximetry 98 % 98 % [facility] ([facility]) Systolic blood pressure 142 mm[Hg] 142 mm[Hg] [facility] Diastolic blood pressure 84 mm[Hg] 84 mm[Hg] [facility] ([facility]) Heart rate 84 /min 84 /min [facility] ([facility]) Body temperature 97.1 [degF] 97.1 [degF] [facility] ([facility] Body height 77 [in_i] 77 [in_i] [facility] ([facility] 6'5" Body weight 272.00 [lb_av] 272.00 [lb_av] [facility] ([facility] Body mass index (BMI) [Ratio] 32.3 kg/m2 32.3 k g/m2 [facility] ([facility] Body weight 274.31 [lb_av] 274.31 [lb_av] [facility] ([facility] Body mass index (BMI) [Ratio] 32.5 kg/m2 32.5 k g/m2 [facility] ([facility] Oxygen saturation in Arterial blood by Pulse oximetry 98 % 98 % [facility] ([facility] ) Systolic blood pressure 134 mm[Hg] 134 mm[Hg] M [facility] ([facility] ) Diastolic blood pressure 80 mm[Hg] 80 mm[Hg] [facility] ([facility] Heart rate 69 /min 69 /min [facility] ([facility] ) Body temperature 96.4 [degF] 96.4 [degF] [facility] ([facility] Body height 77 [in_i] 77 [in_i] [facility] ([facility] 6'5" Body temperature 96.7 [degF] 96.7 [degF] [facility] ([facility] Body height 77 [in_i] 77 [in_i] [facility] ([facility] 6'5" Body weight 274.56 [lb_av] 274.56 [lb_av] [facility] ([facility] Body mass index (BMI) [Ratio] 32.6 kg/m2 32.6 k g/m2 [facility] ([facility] ) Systolic blood pressure 130 mm[Hg] 130 mm[Hg] [facility] ([facility] ) Diastolic blood pressure 86 mm[Hg] 86 mm[Hg] [facility] ([facility] Heart rate 74 /min 74 /min [facility] ([facility] ) Oxygen saturation in Arterial blood by Pulse oximetry 98 % 98 % [facility] ([facility] ) Systolic blood pressure 144 mm[Hg] 144 mm[Hg] [facility] ([facility] Body mass index (BMI) [Ratio] 33.0 kg/m2 33.0 k g/m2 [facility] Oxygen saturation in Arterial blood by Pulse oximetry 98 % 98 % [facility] Diastolic blood pressure 80 mm[Hg] 80 mm[Hg] [facility] ([facility]) Heart rate 77 /min 77 /min [facility] ([facility]) Body temperature 97.1 [degF] 97.1 [degF] [facility] ([facility]) Body height 77 [in_i] 77 [in_i] [facility] 6'5" Body weight 278.00 [lb_av] 278.00 [lb_av] [facility] ([facility])
[2021-09-07 02:11] LABS: BASO % 0.5 % (0.0-1.0); EOS # 0.2 10^3/uL (0.0-0.5); EOS % 5.2 % (0.0-3.0); HEMOGLOBIN 14.6 g/dl (13.5-17.5); LYMPH # 1.5 10^3/uL (1.5-5.0); LYMPH % 34.5 % (24.0-44.0); MEAN CORPUSCULAR HEMOGLOBIN 26.8 pg (27.0-33.0); MEAN CORPUSCULAR VOLUME 78.9 fl (80.0-96.0); MONO # 0.4 10^3/uL (0.0-0.8); NEUTROPHILS # 2.1 10^3/uL (1.5-8.5); NEUTROPHILS % 50.6 % (36.0-66.0); PLATELET COUNT, AUTOMATED 147 10^3/uL (150-450); RED BLOOD COUNT 5.45 10^6/uL (4.30-6.10); WHITE BLOOD COUNT 4.2 10^3/uL (4.0-10.0)
[2021-09-07] MEDS ORDERED: CETI10CA2 PO (02:20)
[2021-09-07 02:37] LABS: ALBUMIN 3.7 GM/DL (3.2-5.2); ALT/SGPT 58 U/L (12-78); BILIRUBIN,DIRECT < 0.1 MG/DL (0.0-0.2); BILIRUBIN,TOTAL 0.4 MG/DL (0.2-1.0); BLOOD UREA NITROGEN 14 MG/DL (7-18); CARBON DIOXIDE LEVEL 25 MEQ/L (21-32); CHLORIDE LEVEL 109 MEQ/L (98-107); COMPLEMENT C4 18 MG/DL (10-40); CREATININE FOR GFR 0.99 MG/DL (0.70-1.30); GLOMERULAR FILTRATION RATE > 60.0 (>60); GLUCOSE, FASTING 90 MG/DL (70-100); POTASSIUM SERUM 4.1 MEQ/L (3.5-5.1); SODIUM LEVEL 138 MEQ/L (136-145); TOTAL PROTEIN 8.2 GM/DL (6.4-8.2)
[2021-09-07 02:38] LABS: ERYTHROCYTE SEDIMENTATION RATE 4 mm/hr (0-15)
== END 2021-09-07 02:43 | disposition home or self-care (01) ==
LOC: M ED 22:14
DX: L03.012 Cellulitis of left finger (principal); L28.2 Other prurigo; E03.9 Hypothyroidism, unspecified; G47.30 Sleep apnea, unspecified
CPT/HCPCS: 80048; 80076; 83519; 85025; 85280; 85652; 86140; 86160; 86161; 86617; 99282; J7512